=== PATIENT | female | born 1955 | race Caucasian/White ===

== ENCOUNTER 2016-09-21 20:14 | Emergency (ER) | payer OTHER ==
[2016-09-21 20:24] VITALS: TEMP 97.9; BMI 34.0
--- NOTE | 2016-09-21 20:29 | PDOC ---
History of Present Illness - History of Present Illness Initial Comments: 61 year old female with HTN, HLD, GERD, Pancreatic Insuficiency, asthma, and cholelithiases presenting with chest pain and abdominal pain for the past two days. She describes the chest pain as a 9/10 non radiating pressure that did co- present with SOB, diaphoresis, nausea, and vomiting and actually woke her up out of bed two nights ago. The pain is non-pleuritic, non-exertional and has no clear exacerbating or relieving factors. She describes the abdominal pain as the same 9/10 pressure sensation. These symptoms are not similar to her previous GERD, cholelithiasis, or pancreatic pain. She denies fevers, palpitations, constipation, diarrhea, hemoptysis, or any other symptoms. Her PCP is Dr. Kurtz. 09/21/16 20:32 09/21/16 23:57 <Vinayak Paiz - Last Filed: 09/22/16 05:41> <Julia Mohan - Last Filed: 09/22/16 06:04> - General Chief Complaint: Chest Pain Stated Complaint: CHEST PAIN Time Seen by Provider: 09/21/16 20:28 Past History - Past Medical History Asthma: Yes Hypercholesterolemia: Yes - Psycho/Social/Smoking Cessation Hx Anxiety: No Suicidal Ideation: No Smoking Status: No Smoking History: Never smoked Number of Cigarettes Smoked Daily: 0 Hx Alcohol Use: No Drug/Substance Use Hx: No Substance Use Type: None Hx Substance Use Treatment: No <Vinayak Paiz - Last Filed: 09/22/16 05:41> <Julia Mohan - Last Filed: 09/22/16 06:04> - Past Medical History Allergies/Adverse Reactions: Allergies Allergy/AdvReac Type Severity Reaction Status Date / Time No Known Drug Allergies Allergy Verified 09/21/16 20:24 Shellfish AdvReac Mild Verified 09/21/16 20:24 Home Medications: Ambulatory Orders Omeprazole [Prilosec] 40 mg PO DAILY #20 capsule. 04/14/11 Topiramate [Topamax] 100 mg PO DAILY 04/14/11 Acetaminophen with Codeine [Tylenol with Codeine #4 Tablet] 1 each PO PRN Albuterol Sulfate [Proair Respiclick] 90 mcg IH DAILY 07/16/15 Alendronate Sodium [Binosto] 70 mg PO DAILY 07/16/15 Atorvastatin Ca [Lipitor] 40 mg PO HS 07/16/15 Butalb/Acetaminophen/Caffeine [Jfehsz-Mpnfifbn-Vsot 50-300-40] 1 each PO PRN Montelukast Na [Singulair -] 10 mg PO HS 07/16/15 Multivits,Ca,Minerals/Iron/FA [Women's Daily Formula Caplet] 1 each PO DAILY Rizatriptan Benzoate [Rizatriptan] 10 mg PO DAILY 07/16/15 Albuterol Sulfate [Proair Respiclick] 90 mcg IH DAILY 09/21/16 Dicyclomine HCl 10 mg PO DAILY 09/21/16 Ursodiol [Actigall] 300 mg PO DAILY 09/21/16 Oxycodone HCl/Acetaminophen [Percocet 5-325 mg Tablet] 1 - 2 tab PO Q4H PRN #20 tablet MDD 5 tablets 09/22/16 Ranitidine [Zantac -] 150 mg PO DAILY #14 tablet 09/22/16 Review of Systems - Review of Systems Constitutional: Yes: Diaphoresis. No: Loss of Appetite, Night Sweats HEENTM: No: Blurred Vision, Tearing, Double Vision Respiratory: Yes: Shortness of Breath. No: Cough, SOB with Exertion Cardiac (ROS): Yes: Chest Pain. No: Irregular Heart Rate, Palpitations ABD/GI: Yes: Nausea, Vomiting. No: Diarrhea : No: Burning, Dysuria, Discharge Neurological: No: Headache, Paresthesia <Vinayak Paiz - Last Filed: 09/22/16 05:41> *Physical Exam - Vital Signs Last Vital Signs Temp Pulse Resp BP Pulse Ox 97.9 F 74 18 119/80 98 09/21/16 20:19 09/21/16 20:19 09/21/16 20:19 09/21/16 20:19 09/21/16 20:19 - Physical Exam General Appearance: Yes: Appropriately Dressed. No: Apparent Distress HEENT: positive: EOMI, MARICEL, Normal ENT Inspection, Normal Voice Neck: positive: Trachea midline, Normal Thyroid, Supple. negative: Tender, Rigid Respiratory/Chest: positive: Chest Tender (Tender over lower 1/3 of sternum), Lungs Clear, Normal Breath Sounds. negative: Respiratory Distress Cardiovascular: positive: Regular Rhythm, Regular Rate, S1, S2, Other ( Difficult to fully auscultate heart sounds because of body habitus). negative: Edema Gastrointestinal/Abdominal: positive: Normal Bowel Sounds, Tender (Epigastric tenderness to deep palpation), Flat, Soft Musculoskeletal: negative: CVA Tenderness Integumentary: positive: Normal Color, Dry, Warm Neurologic: positive: Fully Oriented, Alert, Normal Mood/Affect <Vinayak Paiz - Last Filed: 09/22/16 05:41> - Vital Signs Last Vital Signs Temp Pulse Resp BP Pulse Ox 97.9 F 60 18 128/70 99 09/21/16 20:19 09/22/16 01:47 09/22/16 01:47 09/22/16 01:47 09/22/16 01:47 <Julia Mohan - Last Filed: 09/22/16 06:04> Heart Score/ECG Review - History History: Moderately suspicious - Electrocardiogram EKG: Normal - Age Age: 45-65 - Risk Factors Risk Factors Heart Score: Yes Hx Hypercholesterolemia, Yes Hx Hypertension Based on the list above the patient has:: 1-2 risk factors - Troponin Troponin: </= normal limit - Score Heart Score - Total: 3 - ECG Intrepretation Rhythm: Regular Rhythm - Oil Trough Oil Trough: Normal - P and AL Comment:: Old Q waves in AVR 09/22/16 00:05 <Vinayak Paiz - Last Filed: 09/22/16 05:41> ED Treatment Course - LABORATORY CBC & Chemistry Diagram: 09/21/16 21:25 09/21/16 21:25 <Vinayak Paiz - Last Filed: 09/22/16 05:41> - LABORATORY CBC & Chemistry Diagram: 09/21/16 21:25 09/21/16 21:25 - ADDITIONAL ORDERS Additional order review: Laboratory Results 09/22/16 09/22/16 09/21/16 03:22 01:22 21:25 Sodium 142 Potassium 4.2 Chloride 109 H Carbon Dioxide 27 Anion Gap 6 L BUN 16 D Creatinine 0.8 Creat Clearance w eGFR > 60 Random Glucose 102 Lactic Acid 0.7 Calcium 8.8 Total Bilirubin 0.2 D AST 13 L ALT 20 Alkaline Phosphatase 54 D Creatine Kinase 88 95 Troponin I < 0.02 < 0.02 Total Protein 6.4 Albumin 3.7 Lipase 223 09/21/16 21:25 RBC 4.41 MCV 89.3 MCHC 33.6 RDW 13.7 MPV 9.4 Neutrophils % 52.1 Lymphocytes % 39.2 Monocytes % 6.2 Eosinophils % 1.9 Basophils % 0.6 - Medications Given in the ED: ED Medications Discontinued Medications Generic Name Dose Route Start Last Admin Trade Name Tucker PRN Reason Stop Dose Admin Al Hydroxide/Mg Hydroxide 30 ml 09/21/16 21:28 09/21/16 21:38 Mylanta Oral Suspension - PO 09/21/16 21:29 30 ml ONCE ONE Administration Famotidine/Sodium Chloride 50 mls @ 100 mls/hr 09/21/16 21:28 09/21/16 21:38 Pepcid 20 Mg Premixed Ivpb - IVPB 09/21/16 21:57 100 mls/hr ONCE ONE Administration Morphine Sulfate 2 mg 09/21/16 21:27 09/21/16 21:38 Morphine Injection - IVPUSH 09/21/16 21:28 2 mg ONCE ONE Administration Morphine Sulfate 4 mg 09/22/16 01:54 09/22/16 02:10 Morphine Injection - IVPUSH 09/22/16 01:55 4 mg ONCE ONE Administration <Julia Mohan - Last Filed: 09/22/16 06:04> Medical Decision Making - Medical Decision Making 61 year old female with HTN, HLD, GERD, cholelithiasis, presenting with chest pain, nausea, vomiting, diaphoresis, and SOB that woke her up out of bed. Given risk factors and presentation, she should be ruled out for acute cardiac event vs. unstable angina. Less likely PE given lack of VS abnormalities, hemoptysis, pleuritic quality and other diagnosis more likely. Possibly gallbladder, pancreas, or liver pathology as the root cause of this pain so CMP + Lipase, CBC , troponin, EKG will be sent 09/21/16 23:[address] Lopez at 23:05 and she is OK with two Troponin rule out without EKG changes and will follow up in office tomorrow. 09/22/16 00:01 09/22/16 02:16 2nd troponin negative but patient still very tender in epigastrium so will give 4mg IV morphine and perform CT abdomen with PO contrast since she is allergic to IV contrast. 09/22/16 04:16 Patient has been asleep since the administration of IV morphine 4 with apparent pain control. Still pending CT abdomen/ pelvis. 09/22/16 04:58 09/22/16 05:41 CT abdomen pelvis completely normal. Patient's pain is much improved. Labs WNL, lactic acid WNL. Will send home with symptomatic treatment (PPI, H2 rachana, and 3-4 days of percocets). Patient will reschedule GI appointment for earlier this week. <Vinayak Paiz - Last Filed: 09/22/16 05:41> *DC/Admit/Observation/Transfer - Discharge Dispostion Admit: No <Vinayak Paiz - Last Filed: 09/22/16 05:41> <Julia Mohan - Last Filed: 09/22/16 06:04> Diagnosis at time of Disposition: Abdominal pain - Prescriptions Prescriptions: Oxycodone HCl/Acetaminophen [Percocet 5-325 mg Tablet] 1 - 2 tab PO Q4H PRN #20 tablet MDD 5 tablets PRN Reason: pain Ranitidine [Zantac -] 150 mg PO DAILY #14 tablet - Referrals Referrals: Simone Kurtz MD [Primary Care Provider] - - Patient Instructions Additional Instructions: You were seen for abdominal pain that we worked up and did not find any specific cause. We believe that this is most likely due to your ulcer. We prescribed you a new medication to help with your stomach acid. We also prescribed you some pain medication that should help you through the week. Please call Dr. Falcon's office today to advance your GI appointment to this week.
--- NOTE | 2016-09-21 21:02 | PDOC ---
Attending Attestation - Resident Resident Name: Vinayak Paiz - ED Attending Attestation I have performed the following: I have examined & evaluated the patient, The case was reviewed & discussed with the resident, I agree w/resident's findings & plan, Exceptions are as noted - HPI HPI: 09/21/16 20:59 61yo F hx asthma, HTN (not on meds), HL, cholecystectomy, pancreatic insufficiency, GERD p/w epigastric pain radiating up to the sternum x 2 days a/ w diaphoresis, nausea, SOB. No triggers, chest pain is not pleuritic, not worse with food. Pain started while she was at rest, woke her up out of bed. No fevers , chills, coughing. No trauma to the chest. No recent immobility. - Physicial Exam PE: 09/21/16 21:02 GENERAL: Awake, alert, and fully oriented, in no acute distress HEAD: No signs of trauma EYES: PERRLA, EOMI, sclera anicteric, conjunctiva clear ENT: Auricles normal inspection, hearing grossly normal, nares patent, oropharynx clear without exudates. Moist mucosa NECK: Normal ROM, supple, no lymphadenopathy, JVD, or masses LUNGS: Breath sounds equal, clear to auscultation bilaterally. No wheezes, and no crackles HEART: Regular rate and rhythm, normal S1 and S2, no murmurs, rubs or gallops. + inferior sternal ttp, no rebound or guarding. ABDOMEN: Soft, normoactive bowel sounds. No guarding, no rebound. No masses. + epigastric ttp EXTREMITIES: Normal range of motion, no edema. No clubbing or cyanosis. No cords, erythema, or tenderness NEUROLOGICAL: A/O x3. 5/5 strength in all 4 extremities. Normal sensation in all 4 extremities. Negative pronator drift. Normal finger nose finger test. Cranial nerves II through XII grossly intact. Normal speech, normal gait SKIN: Warm, Dry, normal turgor, no rashes or lesions noted. - Medical Decision Making 09/21/16 21:04 61yo hx GERD, pancreatitis, HTN, HL p/w 2 days of epigastric radiating to sternum CP a/w nausea, diaphoresis, SOB. No dark or bloody stools. Exam with reproducible CP and epigastric ttp. Ddx includes ACS, heart score is 3 (for moderately suspicious story, age and risk factors). Will check 2 troponins. DDx also includes GERD vs PUD vs muscuoloskeletal pain. PE also on differential but unlikely with normal vitals, no PE risk factors, and no SOB. -labs -CXR -pain medication -reassess EKG: NSR, rate 72, normal axis, no EMILY. Q wave in AVL with no significant change compared to EKG from 07/12/2015 Discussed our plan to check [address] Lopez (who is covering for pt' s PMD Dr. Kurtz) who agrees with our plan 09/22/16 05:34 trop neg x2 Given persistent epigastric abd pain, CTAP ordered CTAP negative for acute pathology Likely GERD vs PUD, pt feels better after GI cocktail and morphine. Repeat abdominal exam unremarkable with mild epigastric ttp, no rebound or guarding. Discussed all findings with patient and that likely this pain is 2/2 GERD vs PUD. Pt has GI doctor Terrie with whom she has an appointment in November. Pt is amenable to calling Dr Falcon's office today to move her appointment up. Stable [facility] to follow up with PMD Dr. Kurtz within 1-2 days.
[2016-09-21] MEDS ORDERED: morphine CARPU-JECT 2 MG/1 ML DISP.SYRIN IVPUSH ONE (21:27)
[2016-09-21] MEDS ORDERED: MAG HYDROX/AL HYDROX/SIMETH 30 ML UNIT-DOSE CUP PO ONE (21:28)
[2016-09-21] MEDS ORDERED: FAMOTIDINE 20 MG/50 ML IVPB 50 ML IVPB ONE ×2 (21:28→21:33)
[2016-09-21] MEDS ORDERED: morphine CARPU-JECT 4 MG/1 ML DISP.SYRIN ONE (21:33)
[2016-09-21] MEDS ORDERED: MAG HYDROX/AL HYDROX/SIMETH 30 ML UNIT-DOSE CUP ONE (21:33)
[2016-09-21 21:35] LABS: BASOPHIL 0.6 % (0-2.0); EOSINOPHIL 1.9 % (0-4.5); MCHC 33.6 g/dl (32.0-36.0); MEAN CELL VOLUME 89.3 fl (80-96); MEAN PLT VOLUME 9.4 fl (7.5-11.1); NEUTROPHILS 52.1 % (42.8-82.8); PLATELET COUNT 179 K/MM3 (134-434); RDW 13.7 % (11.6-15.6); WHITE BLOOD COUNT 7.7 K/mm3 (4.0-10.0)
[2016-09-21 21:56] LABS: ALBUMIN 3.7 g/dl (3.4-5.0); ANION GAP 6 (8-16); BILIRUBIN,TOTAL 0.2 mg/dL (0.2-1.0); CALCIUM 8.8 mg/dL (8.5-10.1); CO2 27 mmol/L (21-32); CREATININE 0.8 mg/dL (0.55-1.02); GLUCOSE,RANDOM 102 mg/dL (74-106); SGOT/AST 13 U/L (15-37); SGPT/ALT 20 U/L (12-78); TOT PROT 6.4 g/dl (6.4-8.2)
[2016-09-21 21:58] LABS: ALK PHOS 54 U/L (45-117); CPK 95 IU/L (26-192); TROPONIN I < 0.02 ng/ml (0.00-0.05)
[2016-09-22 01:47] VITALS: BP 128/70; PULSE 60
[2016-09-22] MEDS ORDERED: morphine CARPU-JECT 4 MG/1 ML DISP.SYRIN IVPUSH ONE (01:54)
[2016-09-22 01:57] LABS: CPK 88 IU/L (26-192); TROPONIN I < 0.02 ng/ml (0.00-0.05)
[2016-09-22] MEDS ORDERED: morphine CARPU-JECT 4 MG/1 ML DISP.SYRIN ONE (02:01)
[2016-09-22 06:01] LABS: URINE APPEARANCE SLCLOUDY; URINE BILIRUBIN NEGATIVE (NEGATIVE); URINE BLOOD NEGATIVE (NEGATIVE); URINE COLOR LTYELLOW; URINE GLUCOSE (UA) NEGATIVE (NEGATIVE); URINE KETONE NEGATIVE (NEGATIVE); URINE NITRITE NEGATIVE (NEGATIVE); URINE PROTEIN NEGATIVE (NEGATIVE); URINE UROBILINOGEN NEGATIVE mg/dL (0.2-1.0)
[2016-09-22 07:28] LABS: URINE LEUK ESTERASE 3+ (NEGATIVE)
--- NOTE | 2016-09-22 13:36 | EKG ---
Test Reason : Blood Pressure : / mmHG Vent. Rate : 072 BPM Atrial Rate : 072 BPM P-R Int : 160 ms QRS Dur : 086 ms QT Int : 394 ms P-R-T Axes : 051 035 040 degrees QTc Int : 431 ms NORMAL SINUS RHYTHM POSSIBLE LEFT ATRIAL ENLARGEMENT BORDERLINE ECG WHEN COMPARED WITH ECG OF 12-JUL-2015 20:16, NO SIGNIFICANT CHANGE WAS FOUND Confirmed by SHERICE BAIG MD ([id number]) on 09/22/2016 1:35:45 PM Referred By: Confirmed By:SHERICE BAIG MD
== END 2016-09-22 06:04 | disposition home or self-care (01) ==
LOC: JER 20:14
PROC: 3E033NZ Introduction of Analgesics, Hypnotics, Sedatives into Peripheral Vein, Percutaneous Approach (ICD-10-PCS; principal; 2016-09-21)
PROC: 3E033GC Introduction of Other Therapeutic Substance into Peripheral Vein, Percutaneous Approach (ICD-10-PCS; 2016-09-21)
DX: R10.9 Unspecified abdominal pain (principal); I10 Essential (primary) hypertension; E78.5 Hyperlipidemia, unspecified; K21.9 Gastro-esophageal reflux disease without esophagitis
CPT/HCPCS: 36415; 71020-TC; 74176-TC; 80053; 81003; 81015; 83605; 83690; 84484; 85025; 93005; 93010; 96365; 96375; 96376; 99284-25

== ENCOUNTER 2017-11-11 14:26 | Emergency (ER) | payer OTHER ==
[2017-11-11 14:37] VITALS: BP 138/80; PULSE 75; BMI 34.2
[2017-11-11] MEDS ORDERED: DEXAMETHASONE SOD PHOSPHATE 10 MG/1 ML VIAL IM ONE (15:22)
[2017-11-11] MEDS ORDERED: DEXAMETHASONE SOD PHOSPHATE 10 MG/1 ML VIAL ONE (15:26)
--- NOTE | 2017-11-11 15:28 | PDOC ---
History of Present Illness - General Chief Complaint: Itching Stated Complaint: ITCHING Time Seen by Provider: 11/11/17 15:22 History Source: Patient Exam Limitations: No Limitations - History of Present Illness Initial Comments: 11/11/17 15:22 Onset of itching rash 2 days ago. States started on rest, and is spread to various portions of her body. More she itches them or eruptions occur. Is uncertain as to cause. Has not changed soaps, detergents, any creams or lotions at home. Use these relatively anti-ALLERGY. 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 Denies swelling to lips, tongue, no breathing problems. Has tried one dose of Benadryl yesterday with minimal resolved. Recent fever, URI symptoms. No one else at home with rash. Timing/Duration: reports: getting worse, intermittent Severity: Yes: mild Location: reports: extremities, generalized Respiratory Risk Factors: reports: no cause identified Modifying Factors: improves with: antihistamine Associated Symptoms: reports: denies symptoms Past History - Travel Traveled outside of the country in the last 30 days: No Close contact w/someone who was outside of country & ill: No - Past Medical History Allergies/Adverse Reactions: Allergies Allergy/AdvReac Type Severity Reaction Status Date / Time No Known Drug Allergies Allergy Verified 11/11/17 14:37 Shellfish AdvReac Mild Verified 11/11/17 14:37 Home Medications: Ambulatory Orders Omeprazole [Prilosec] 40 mg PO DAILY #20 capsule. 04/14/11 Topiramate [Topamax] 100 mg PO DAILY 04/14/11 Alendronate Sodium [Binosto] 70 mg PO DAILY 07/16/15 Atorvastatin Ca [Lipitor] 40 mg PO HS 07/16/15 Butalb/Acetaminophen/Caffeine [Hdsanm-Dvuqsltc-Pmed 50-300-40] 1 each PO PRN Montelukast Na [Singulair -] 10 mg PO HS 07/16/15 Multivit,Calc,Mins/Iron/Folic [Women's Daily Formula Caplet] 1 each PO DAILY Rizatriptan Benzoate [Rizatriptan] 10 mg PO DAILY 07/16/15 Albuterol Sulfate [Proair Respiclick] 90 mcg IH DAILY 09/21/16 Dicyclomine HCl 10 mg PO DAILY 09/21/16 Ursodiol [Actigall] 300 mg PO DAILY 09/21/16 Diphenhydramine HCl [Benadryl -] 25 mg PO Q8H PRN #21 capsule 11/11/17 Asthma: Yes HTN: Yes Hypercholesterolemia: Yes - Suicide/Smoking/Psychosocial Hx Smoking Status: No Smoking History: Never smoked Have you smoked in the past 12 months: No Number of Cigarettes Smoked Daily: 0 Information on smoking cessation initiated: No Hx Alcohol Use: No Drug/Substance Use Hx: No Substance Use Type: None Hx Substance Use Treatment: No Review of Systems - Review of Systems Able to Perform ROS?: Yes Is the patient limited Tristanian proficient: Yes Constitutional: Yes: Symptoms Reported, See HPI, Malaise. No: Fever HEENTM: Yes: Symptoms Reported, See HPI. No: Nose Congestion, Throat Swelling, Difficulty Swallowing Respiratory: Yes: Symptoms reported, See HPI. No: Cough, Wheezing ABD/GI: No: Symptoms Reported : No: Symptoms Reported Integumentary: Yes: Symptoms Reported, See HPI, Erythema, Pruritus, Rash Neurological: Yes: See HPI. No: Symptoms reported, Headache All Other Systems: Reviewed and Negative *Physical Exam - Vital Signs Last Vital Signs Temp Pulse Resp BP Pulse Ox 75 16 138/80 100 11/11/17 14:35 11/11/17 14:35 11/11/17 14:35 11/11/17 14:35 - Physical Exam General Appearance: Yes: Nourished, Appropriately Dressed, Apparent Distress HEENT: positive: MARICEL, Normal ENT Inspection, TMs Normal, Pharynx Normal. negative: Rhinorrhea Neck: positive: Supple. negative: Lymphadenopathy (R), Lymphadenopathy (L) Respiratory/Chest: positive: Lungs Clear. negative: Respiratory Distress, Wheezing Musculoskeletal: positive: Normal Inspection Integumentary: positive: Normal Color, Dry, Erythema (with macular rash to scattered areas/ wrsits/ chest/ back. No wheals / hives noted. ) Neurologic: positive: thermostat repairer II-XII NML intact, Fully Oriented, Alert, Normal Response, Motor Strength 5/5 Progress Note - Progress Note Progress Note: Dermatitis, uncertain etiology. Possibly contact dermatitis however there is no evidence of anaphylaxis, infectious or infected nature therefore will treat conservatively and have patient follow up with nut grader for further explanation *DC/Admit/Observation/Transfer Diagnosis at time of Disposition: Dermatitis - Discharge Dispostion Disposition: HOME Condition at time of disposition: Stable Decision to Admit order: No - Referrals Referrals: Simone Kurtz MD [Primary Care Provider] - Govind Blackmon MD [Staff Physician] - - Patient Instructions Printed Discharge Instructions: DI for Contact Dermatitis Additional Instructions: Rest, keep cool and dry- avoid strenuous activity or hot /humid environments Less hot showers, no abrasive soaps May use heavy creams like Eucerin or Cetaphil to keep skin moist May apply Aveeno, calamine lotion, pter-mto-[id number] hydrocortisone creams as needed for symptoms May use Benadryl at night for antihistamine, Zyrtec/ Betty or Claritin for daytime antihistamine use to help with itching May use phea-mcn-zswynxm hydrocortisone cream on all areas except face Try to identify cause for rash and avoid exposures Followup with PMD in one week if no resolution Make appointment with barkeep for evaluation when possible - Post Discharge Activity Forms/Work/School Notes: Back to Work
== END 2017-11-11 15:33 | disposition home or self-care (01) ==
LOC: JERFT 14:26
PROC: 3E023GC Introduction of Other Therapeutic Substance into Muscle, Percutaneous Approach (ICD-10-PCS; principal; 2017-11-11)
DX: L30.9 Dermatitis, unspecified (principal); I10 Essential (primary) hypertension; J45.909 Unspecified asthma, uncomplicated; E78.00 Pure hypercholesterolemia, unspecified
CPT/HCPCS: 99281-25; J1100

== ENCOUNTER 2018-12-04 11:35 | Emergency (ER) | payer OTHER ==
[2018-12-04 11:42] VITALS: BP 146/80; PULSE 74; TEMP 98.2; BMI 33.5
--- NOTE | 2018-12-04 11:55 | PDOC ---
History of Present Illness - General Chief Complaint: Cold Symptoms Stated Complaint: COUGHING/HEADACHE Time Seen by Provider: 12/04/18 11:45 - History of Present Illness Initial Comments: 12/04/18 11:55 CHIEF COMPLAINT: cold symptoms HISTORY OF PRESENT ILLNESS: 63 yo F with HLD, asthma, and migraines presents to fast track with cough, runny nose, and chest discomfort since yesterday. Patient reports body aches and headaches but is unsure of whether or not she had a fever. Patient reports cough is productive only in the mornings. No recent travel or sick contacts. PAST MEDICAL HISTORY: HLD, asthma, migraines FAMILY HISTORY: Denies SOCIAL HISTORY: Denies tobacco, alcohol, illicit drug use. SURGICAL HISTORY: Denies ALLERGIES: No known drug allergies REVIEW OF SYSTEMS General/Constitutional: Body aches. Denies fever or chills. Denies weakness, weight change. HEENT: Denies change in vision. Denies ear pain or discharge. Denies sore throat. Cardiovascular: Denies chest pain or shortness of breath. Respiratory: Cough x 2 days. Gastrointestinal: Denies nausea, vomiting, diarrhea or constipation. Denies rectal bleeding. Genitourinary: Denies dysuria, frequency, or change in urination. Musculoskeletal: Denies joint or muscle swelling or pain. Denies neck or back pain. Skin and breasts: Denies rash or easy bruising. Neurologic: Headache. Denies vertigo, loss of consciousness, or loss of sensation. Psychiatric: Denies depression or anxiety. PHYSICAL EXAM General Appearance: Well-appearing, appropriately dressed. No apparent distress , no intoxication. HEENT: Rhinorrhea, post nasal drip. EOMI, PERRLA, normal ENT inspection, normal voice, TMs normal, pharynx normal. No conjunctival pallor. No photophobia, scleral icterus. Neck: Supple. Trachea midline. No tenderness, rigidity, carotid bruit, stridor , lymphadenopathy, or thyromegaly. Respiratory/Chest: Lungs CTAB. No shortness of breath, chest tenderness, respiratory distress, accessory muscle use. No crackles, rales, rhonchi, stridor , wheezing, dullness Cardiovascular: RRR. S1, S2. No JVD, murmur, bradycardia, tachycardia. Vascular Pulses: Dorsalis-Pedis (R): 2+, Dorsalis-Pedis (L): 2+ Gastrointestinal/Abdominal: Normal bowel sounds. Abdomen soft, non-distended. No tenderness or rebound tenderness. No organomegaly, pulsatile mass, guarding , hernia, hepatomegaly, splenomegaly. Lymphatic: No adenopathy, tenderness. Musculoskeletal/Extremities: Normal inspection. FROM of all extremities, normal capillary refill. Pelvis Stable. No CVA tenderness. No tenderness to extremities, pedal edema, swelling, erythema or deformity. Integumentary: Appropriate color, dry, warm. No cyanosis, erythema, jaundice or rash Neurologic: mill controller II-XII intact. Fully oriented, alert. Appropriate mood/affect. Motor strength 5/5. No appreciable EOM palsy, facial droop or sensory deficit. 12/04/18 11:56 Past History - Past Medical History Allergies/Adverse Reactions: Allergies Allergy/AdvReac Type Severity Reaction Status Date / Time No Known Drug Allergies Allergy Verified 11/11/17 14:37 Shellfish AdvReac Mild Verified 11/11/17 14:37 Home Medications: Ambulatory Orders Omeprazole [Prilosec] 40 mg PO DAILY #20 capsule. 04/14/11 Topiramate [Topamax] 100 mg PO DAILY 04/14/11 Alendronate Sodium [Binosto] 70 mg PO DAILY 07/16/15 Atorvastatin Ca [Lipitor] 40 mg PO HS 07/16/15 Butalb/Acetaminophen/Caffeine [Gklwkq-Xprjlmfh-Zbtm 50-300-40] 1 each PO PRN Montelukast Na [Singulair -] 10 mg PO HS 07/16/15 Multivit,Calc,Mins/Iron/Folic [Women's Daily Formula Caplet] 1 each PO DAILY Rizatriptan Benzoate [Rizatriptan] 10 mg PO DAILY 07/16/15 Albuterol Sulfate [Proair Respiclick] 90 mcg IH DAILY 09/21/16 Dicyclomine HCl 10 mg PO DAILY 09/21/16 Ursodiol [Actigall] 300 mg PO DAILY 09/21/16 Diphenhydramine HCl [Benadryl -] 25 mg PO Q8H PRN #21 capsule 11/11/17 Benzonatate [Tessalon Pearls -] 100 mg PO TID #21 capsule 12/04/18 Pseudoephedrine HCl [12 Hour Decongestant] 120 mg PO BID #20 tablet.er 12/04/18 Asthma: Yes COPD: No HTN: Yes Hypercholesterolemia: Yes - Immunization History Immunization Up to Date: Yes - Psycho Social/Smoking Cessation Hx Smoking Status: No Smoking History: Never smoked Have you smoked in the past 12 months: No Number of Cigarettes Smoked Daily: 0 Information on smoking cessation initiated: No Hx Alcohol Use: No Drug/Substance Use Hx: No Substance Use Type: None Hx Substance Use Treatment: No *Physical Exam - Vital Signs Last Vital Signs Temp Pulse Resp BP Pulse Ox 98.2 F 74 18 146/80 96 12/04/18 11:40 12/04/18 11:40 12/04/18 11:40 12/04/18 11:40 12/04/18 11:40 Medical Decision Making - Medical Decision Making 12/04/18 12:07 63 yo F with HLD, asthma, and migraines presents to fast track with cough, runny nose, and chest discomfort since yesterday. -flu swab Discharge - Discharge Information Problems reviewed: Yes Clinical Impression/Diagnosis: URI (upper respiratory infection) Qualifiers: URI type: unspecified viral URI Qualified Code(s): J06.9 - Acute upper respiratory infection, unspecified Condition: Stable Disposition: HOME - Admission No - Additional Discharge Information Prescriptions: Benzonatate [Tessalon Pearls -] 100 mg PO TID #21 capsule Pseudoephedrine HCl [12 Hour Decongestant] 120 mg PO BID #20 tablet.er - Follow up/Referral Referrals: Simone Kurtz MD [Primary Care Provider] - - Patient Discharge Instructions Patient Printed Discharge Instructions: DI for Viral Upper Respiratory Infection -- Adult Additional Instructions: Please take your medications as prescribed. Follow up with your primary care doctor next week. If you develop severe headache or neck pain, fever unrelieved by Motrin or Tylenol, vomiting or diarrhea, please return to the ER immediately. - Post Discharge Activity
== END 2018-12-04 12:31 | disposition home or self-care (01) ==
LOC: JERFT 11:35
DX: J06.9 Acute upper respiratory infection, unspecified (principal); B97.89 Other viral agents as the cause of diseases classified elsewhere; I10 Essential (primary) hypertension; E78.00 Pure hypercholesterolemia, unspecified; J45.909 Unspecified asthma, uncomplicated; Z91.013 Allergy to seafood
CPT/HCPCS: 87804; 99281-25

== ENCOUNTER 2020-01-10 17:15 | Emergency (ER) | payer OTHER ==
[2020-01-10 17:21] VITALS: BP 141/80; PULSE 79; TEMP 98.1; BMI 39.1
[2020-01-10 18:09] LABS: BASO % 0.7 % (0-2.0); EOS % 2.1 % (0-4.5); HEMATOCRIT 41.1 % (32.4-45.2); HEMOGLOBIN 13.5 GM/dL (10.7-15.3); LYMPH % 40.9 % (8-40); MCH 29.2 pg (25.7-33.7); MCHC 32.8 g/dl (32.0-36.0); MONO % 6.3 % (3.8-10.2); PLATELET COUNT 170 K/MM3 (134-434); RBC 4.61 M/mm3 (3.60-5.2); RDW 13.6 % (11.6-15.6); WHITE BLOOD COUNT 7.8 K/mm3 (4.0-10.0)
[2020-01-10 18:19] LABS: INR 1.02 (0.83-1.09); PROTHROMBIN TIME (PATIENT) 12.3 SEC (9.7-13.0)
[2020-01-10 18:33] LABS: CHLORIDE 107 mmol/L (98-107); POTASSIUM 4.2 mmol/L (3.5-5.1); SODIUM 140 mmol/L (136-145)
[2020-01-10 18:36] LABS: ANION GAP 4 MMOL/L (8-16); BLOOD UREA NITROGEN 14.5 mg/dL (7-18); CO2 29 mmol/L (21-32); GLUCOSE,RANDOM 95 mg/dL (74-106); LIPASE 191 U/L (73-393)
[2020-01-10 18:39] LABS: CREATININE 0.7 mg/dL (0.55-1.3); SGOT/AST 13 U/L (15-37); SGPT/ALT 17 U/L (13-61)
[2020-01-10 18:41] LABS: BILIRUBIN,TOTAL 0.6 mg/dL (0.2-1); TOT PROT 6.9 g/dl (6.4-8.2)
[2020-01-10 18:42] LABS: ALK PHOS 66 U/L (45-117)
[2020-01-10] MEDS ORDERED: LIDOCAINE VISCOUS 2% ORAL/TOP 20 ML UNIT-DOSE CUP MM ONE (19:03)
[2020-01-10] MEDS ORDERED: MAG HYDROX/AL HYDROX/SIMETH 30 ML UNIT-DOSE CUP PO ONE (19:03)
[2020-01-10] MEDS ORDERED: LIDOCAINE VISCOUS 2% ORAL/TOP 20 ML UNIT-DOSE CUP ONE (19:07)
[2020-01-10] MEDS ORDERED: MAG HYDROX/AL HYDROX/SIMETH 30 ML UNIT-DOSE CUP ONE (19:08)
== END 2020-01-10 19:45 | disposition home or self-care (01) ==
LOC: JER 17:15
DX: K21.9 Gastro-esophageal reflux disease without esophagitis (principal); R10.9 Unspecified abdominal pain
CPT/HCPCS: 36415; 71046-TC-FY; 74176-TC; 80053; 82550; 83690; 84484; 85025; 85610; 93005; 93010; 99285-25

== ENCOUNTER 2021-09-06 11:36 | Emergency (ER) | payer OTHER ==
[2021-09-06 11:53] VITALS: BP 150/94; PULSE 94; RESP 18; TEMP 98.9; BMI 34.5
[2021-09-06] MEDS ORDERED: IBUPROFEN 600 MG TABLET (FP) PO ONE ×2 (13:18→13:47)
[2021-09-06 13:50] LABS: THROAT:GRP A STREP NOT DETECTED (NOTDETECTED)
== END 2021-09-06 14:16 | disposition home or self-care (01) ==
LOC: JER 11:36
DX: U07.1 COVID-19 (principal)
CPT/HCPCS: 0241U-QW; 71046-TC-FY; 87651; 99284-25